=== PATIENT | female | born 1990 | race Caucasian/White ===

== ENCOUNTER 2016-08-23 19:44 | Emergency (ER) | payer SELFPAY ==
[~2016-08-23] VITALS: Ht 165.1 cm; Wt 100.7 kg
[2016-08-23 22:14] LABS: BASOPHIL % 0.2 % (0-2); PLATELET COUNT 380 x10^3mcL (130-400); RED CELL DISTRIBUTION WIDTH 14.5 % (11.5-14.5)
[2016-08-23 22:27] LABS: CALCIUM 8.6 mg/dL (8.5-10.1); CARBON DIOXIDE 30.2 mmol/L (21-32); CHLORIDE SERUM 106 mmol/L (98-107); CREATININE SERUM 0.7 mg/dL (0.6-1.0); GFR1 > 60 mL/min; GLUCOSE SERUM 104 mg/dL (74-106); POTASSIUM SERUM 3.8 mmol/L (3.5-5.1); SODIUM SERUM 141 mmol/L (136-145)
[2016-08-23 22:32] LABS: ALBUMIN 3.4 g/dL (3.4-5.0); ALKALINE PHOSPHATASE 90 U/L (46-116); ALT/SGPT 29 U/L (14-59); AST/SGOT 18 U/L (15-37); BILIRUBIN TOTAL 0.15 mg/dL (0.20-1.00); CHOLESTEROL 152 mg/dL (<200); LIPASE 123 IU/L (73-393); TOTAL PROTEIN, SERUM 7.3 g/dL (6.4-8.2)
[2016-08-23 22:39] LABS: T3 TOTAL 1.47 ng/mL
[2016-08-23 22:43] LABS: CHOLESTEROL/HDL RATIO 5.4; HDL CHOLESTEROL 28 mg/dL (40-60); TRIGLYCERIDES 294 mg/dL (<150)
[2016-08-23 22:52] LABS: FREE T4 0.93 ng/dL (0.76-1.46); FREE THYROXINE INDEX 2.2 ug/dL (1.4-4.5); T4(THYROXINE) 7.4 ug/dL (4.7-13.3)
[2016-08-24 01:17] VITALS: BP 123/79
== END 2016-08-24 01:17 | disposition home or self-care (01) ==
LOC: ED 19:44
PROVIDERS: Specialist
DX: K80.50 Calculus of bile duct without cholangitis or cholecystitis without obstruction (principal); F41.9 Anxiety disorder, unspecified
CPT/HCPCS: 83880; 84439; J1885; J3010; Q0092; Q0162

== ENCOUNTER 2017-04-30 11:25 | Emergency (ER) | payer OTHER, MEDICAID ==
[~2017-04-30] VITALS: Ht 165.1 cm; Wt 100.5 kg
[2017-04-30 13:41] VITALS: BP 134/77
== END 2017-04-30 14:29 | disposition home or self-care (01) ==
LOC: ED 11:25
DX: J01.90 Acute sinusitis, unspecified (principal)

== ENCOUNTER 2017-08-12 18:02 | Emergency (ER) | payer OTHER ==
[~2017-08-12] VITALS: Ht 165.1 cm; Wt 100.9 kg
[2017-08-12 18:21] VITALS: Ht 165.1 cm; Wt 100.9 kg
[2017-08-12 22:02] VITALS: BP 141/86
== END 2017-08-12 22:02 | disposition home or self-care (01) ==
LOC: ED 18:02
DX: R51 Headache (principal); R42 Dizziness and giddiness
CPT/HCPCS: J1200; J1885; J2765; J7030